=== PATIENT | female | born 1945 | race Caucasian/White ===

== ENCOUNTER 2016-04-27 12:02 | Observation (INO) ==
--- NOTE | 2016-04-27 12:19 | Emergency Department Note ---
Disposition Clinical Impression: Atrial fibrillation with RVR Shoulder pain, left Qualifiers: Chronicity: acute Qualified Code(s): M25.512 - Pain in left shoulder Disposition: Admitted As Inpatient Condition: Fair Referrals: Candy Toribio MD [Primary Care Provider] - Forms: ED Satisfaction Letter Time of Disposition: 14:03 (requires admission/transfer) Chest Pain HPI - General Chief Complaint: ED Chest Pain Stated Complaint: chest / left arm pain Time Seen by Provider: 04/27/16 12:18 Source: patient Mode of arrival: private vehicle Limitations: no limitations Vital Signs Reviewed: Yes Nursing Notes Reviewed: Yes - History of Present Illness HPI Narrative: Patient presents to the ED complaining of chest pain and left shoulder and upper arm pain. The arm and shoulder pain started 3 days ago after she was trying to get up from her recliner and wrenched her left arm on the handle. She describes it as a dull ache and states her shoulder is sore. She has never injured this arm before. She is right-handed. No numbness, tingling or weakness in arm. Her chest pain has been occurring intermittently over the past 2 days. She describes it as sharp sudden pains that will last a few seconds and then go away. They will happen several times a day. He is on the left side of her chest. She occasionally feels short of breath with these episodes. She has also had a dry cough for the past 2 weeks and states her voice is coming and going. She reports chills but no fever. She was nauseous earlier today but this has gone away. No vomiting. No urinary symptoms. No diarrhea or constipation. She does have a known history of A. fib with RVR and is on Coumadin, digoxin and Cardizem. She sees Dr. Camejo of [facility]. Severity scale (1-10): 10 - Related Data Home Medications Medication Instructions Recorded Confirmed Albuterol Sulfate [Albuterol 2 puff IH Q4HR PRN 01/09/15 07/09/15 Inhaler] Aspirin 81 mg PO DAILY 01/09/15 07/09/15 Furosemide [Lasix] 40 mg PO DAILY PRN 01/09/15 07/09/15 Glimepiride [Amaryl] 2 mg PO 0800 01/09/15 07/09/15 Lovastatin [Altoprev] 40 mg PO DAILY 01/09/15 07/09/15 Metformin [Glucophage] 1,000 mg PO BID 01/09/15 07/09/15 Potassium Chloride [Klor-Con] 20 meq PO DAILY 04/27/16 04/27/16 Previous Rx's Medication Instructions Recorded Omeprazole [PriLOSEC] 40 mg PO DAILY@0600 #30 capsule 01/12/15 Acetaminophen [Tylenol] 325 mg PO Q6HR PRN #10 tablet 05/27/15 Warfarin [Coumadin] 2.5 mg PO DAILY@1800 tablet 07/14/15 Digoxin [Lanoxin] 0.125 mg PO DAILY #30 tablet 07/17/15 Metoprolol [Lopressor] 75 mg PO BID tablet 07/17/15 Diltiazem CD (24hr) [Cardizem CD] 180 mg PO DAILY #30 cap.er.24h 07/27/15 Allergies Allergy/AdvReac Type Severity Reaction Status Date / Time No Known Allergies Allergy Verified 01/09/15 14:16 Constitutional: Reports: chills. Denies: fever, weakness, weight change Eyes: Denies: eye pain, eye discharge, vision change ENT ED: Denies: ear pain, throat pain, dental pain, hearing loss, epistaxis, congestion, dysphagia Cardiovascular: Reports: chest pain. Denies: palpitations, dyspnea on exertion , edema, syncope Respiratory: Reports: cough. Denies: dyspnea, wheezes, hemoptysis, stridor, sputum production Gastrointestinal: Reports: as per HPI, nausea. Denies: abdominal pain, vomiting , diarrhea Genitourinary: Denies: dysuria, frequency, hematuria, discharge Musculoskeletal: Reports: as per HPI, arthralgia Integumentary: Denies: rash, abrasion, lesions Neurological: Denies: headache, weakness, numbness, paresthesias, confusion, abnormal gait, vertigo Psychiatric: Denies: anxiety, depression, suicidal thoughts, homicidal thoughts , auditory hallucinations, visual hallucinations Endocrine: Denies: fatigue Hematological/Lymphatic: Denies: easy bleeding, easy bruising Allergic/Immunologic: Denies: facial swelling, urticaria Chest Pain PMH - Past Medical History Medical history: Reports: atrial fibrillation, diabetes, GERD, hyperlipidemia, hypertension, renal disease Surgical history: Reports: cholecystectomy, hysterectomy, knee replacement Psychiatric history: Reports: no psych history 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 Absent : tenderness - Respiratory Respiratory exam: Present: normal lung sounds bilaterally - Cardiovascular Cardiovascular exam: Present: tachycardia, irregular rhythm - Abdominal Exam Abdominal exam: Present: soft, Non-Tender. Absent: tenderness, distention, guarding, rebound, rigidity - Extremities Exam Extremities exam: Present: normal inspection, full ROM. Absent: tenderness, pedal edema - Expanded Upper Extremity Exam Shoulder exam: Present: normal inspection, full ROM (limited by discomfort), tenderness (generalized over left shoulder glenohumeral region). Absent: swelling, deformity, crepitus, tenderness over AC joint Arm exam: Present: normal inspection, full ROM Elbow exam: Present: normal inspection, full ROM Forearm/Wrist exam: Present: normal inspection, full ROM Hand exam: Present: normal inspection, full ROM Neuromotor exam: Normal: wrist extension, thumb opposition, thumb IP flexion, thumb adduction, fingers 2-5 abduction Neurosensory exam: Normal: radial nerve Vascular exam: Normal: capillary refill, radial pulse - Back Exam Back exam: Present: normal inspection. Absent: tenderness - Neurological Exam Neurological exam: Present: alert, oriented X3 - Psychiatric Psychiatric exam: Present: normal affect, normal mood - Skin Skin exam: Present: warm, dry, intact, normal color Course Course Narrative: Patient presents to the ED complaining of intermittent chest pain as well as left shoulder pain for the past few days. Shoulder pain appears to be musculoskeletal in nature. Will obtain x-ray to rule out arthritis or other underlying pathology. Regarding her chest discomfort this is likely due to her recurrent A. fib with RVR. Heart rate was in the 130s to 140s on arrival. 12- lead shows A. fib with RVR with no acute ischemic changes. Will check lab work and chest x-ray. Will give Cardizem bolus and reevaluate. - Reevaluation(s) Reevaluation #1: Chest x-ray is normal. Shoulder x-ray shows some calcific tendinopathy and arthritis. Laboratory studies are unremarkable including a negative troponin. Heart rate initially slowed into the 90s with Cardizem bolus but then returned to the 100s and 110s. She will be started on a Cardizem drip in aother attempt to achieve rate control. She will need admission for further A. fib control. I spoke to the hospitalist on-call, Dr. Douglas who has agreed to accept te patient. Patient and family members updated on plan of care and are in agreement. She was given pain medication for her left shoulder pain. She remains hemodynamically stable. Vital Signs Temperature 99.3 F 04/27/16 12:04 Pulse Rate 114 04/27/16 12:04 Respiratory Rate 16 04/27/16 12:04 Blood Pressure 133/90 04/27/16 12:04 O2 Sat by Pulse Oximetry 98 04/27/16 12:04 Temperature 99.3 F 04/27/16 12:04 Pulse Rate 122 04/27/16 12:40 Respiratory Rate 18 04/27/16 12:40 Blood Pressure 124/89 04/27/16 12:40 O2 Sat by Pulse Oximetry 98 04/27/16 12:40 Oxygen Delivery Oxygen Delivery Room Air Chest Pain - Differential Diagnosis Likely: stable angina (versus arrhythmia), atypical chest pain, chest pain - Medical Records Medical records reviewed: Yes I reviewed the patient's medical records. - Lab Data Lab results reviewed: Yes I reviewed the patient's lab results. Result diagrams: 04/27/16 12:25 04/27/16 12:25 Lab Results 04/27/16 04/27/16 04/27/16 Range/Units 12:25 12:25 12:25 WBC 12.5 H (4.3-11.1) K/mcL RBC 5.08 H (3.82-4.97) M/mcL Hgb 13.8 (11.5-15.4) g/dL Hct 42.6 (35.3-44.9) % MCV 83.9 (83.0-100.0) fL MCH 27.2 L (28.0-33.3) pg MCHC 32.4 (31.6-35.5) g/dL RDW 15.4 H (11.5-14.5) % Plt Count 276 (140-400) K/mcL MPV 10.4 (9.4-12.4) fL Immature Gran % 0.4 (0-4) % Seg Neutrophils % 73.3 % Lymphocytes % 15.0 % Monocytes % 9.5 % Eosinophils % 1.3 % Basophils % 0.5 % Neutrophils # 9.2 H (1.6-8.9) K/mcL Lymphocytes # 1.9 (0.6-4.6) K/mcL Monocytes # 1.2 (0.0-1.3) K/mcL Eosinophils # 0.2 (0.0-0.6) K/mcL Basophils # 0.1 (0.0-0.2) K/mcL PT 17.6 H (9.4-12.1) Seconds INR 1.6 APTT 31.4 (26.0-36.0) Seconds Sodium 136 (136-145) mEq/L Potassium 4.4 (3.5-4.5) mEq/L Chloride 100 (98-109) mEq/L Carbon Dioxide 25 (19-29) mEq/L BUN 14 (7-20) mg/dL Creatinine 1.24 H (0.57-1.11) mg/dL Est GFR ( Amer) 52 L (> 60) Est GFR (Non-Af Amer) 43 L (> 60) BUN/Creatinine Ratio 11 (6-26) Glucose 315 H (70-99) mg/dL Calculated Osmolality 295 (280-300) Calcium 9.5 (8.6-10.8) mg/dL Troponin I (0-0.03) ng/mL 04/27/16 Range/Units 12:25 WBC (4.3-11.1) K/mcL RBC (3.82-4.97) M/mcL Hgb (11.5-15.4) g/dL Hct (35.3-44.9) % MCV (83.0-100.0) fL MCH (28.0-33.3) pg MCHC (31.6-35.5) g/dL RDW (11.5-14.5) % Plt Count (140-400) K/mcL MPV (9.4-12.4) fL Immature Gran % (0-4) % Seg Neutrophils % % Lymphocytes % % Monocytes % % Eosinophils % % Basophils % % Neutrophils # (1.6-8.9) K/mcL Lymphocytes # (0.6-4.6) K/mcL Monocytes # (0.0-1.3) K/mcL Eosinophils # (0.0-0.6) K/mcL Basophils # (0.0-0.2) K/mcL PT (9.4-12.1) Seconds INR APTT (26.0-36.0) Seconds Sodium (136-145) mEq/L Potassium (3.5-4.5) mEq/L Chloride (98-109) mEq/L Carbon Dioxide (19-29) mEq/L BUN (7-20) mg/dL Creatinine (0.57-1.11) mg/dL Est GFR ( Amer) (> 60) Est GFR (Non-Af Amer) (> 60) BUN/Creatinine Ratio (6-26) Glucose (70-99) mg/dL Calculated Osmolality (280-300) Calcium (8.6-10.8) mg/dL Troponin I 0.01 (0-0.03) ng/mL - Radiology Data Radiology results reviewed: Yes I reviewed the patient's radiology results. ITS Impressions Chest X-Ray 04/27/16 12:15 IMPRESSION: No acute cardiopulmonary disease. D/ / John Sutherland MD / John Sutherland MD Interpreting Provider: John Sutherland MD Shoulder X-Ray 04/27/16 12:30 IMPRESSION: 1. No acute abnormality of the left shoulder. 2. Mild osteoarthritis of the AC joint. 3. Chronic calcific tendinopathy at the AC joint. D/ / 04/27/2016 13:23:47 Aiden Flynn MD / bcarter Interpreting Provider: Aiden Flynn MD - EKG Data EKG attestation: Yes I reviewed and interpreted this EKG. Rate: tachycardia Rhythm: A.Fib [place]/QRS: normal Interpretation: nonspecific ST-T wave changes, other (A-fib with RVR) Critical Care Time Critical Care Time: Yes Total Critical Care Time: 20 Attestation: The high probability of a clinically significant, sudden or life threatening deterioration of the [cardiovascular] system(s) required my full and direct attention, intervention and personal management. The aggregate critical care time was [] minutes. This time is in addition to time spent performing reported procedures but includes the following: [x] Data Review and interpretation []x Patient assessment and monitoring of vital signs [x] Documentation []x Medication orders and management of A-fib with RVR requiring IV antiarrhythmics
[2016-04-27 12:27] LABS: Basophils # 0.1 K/mcL (0.0-0.2); Basophils % 0.5 %; Eosinophils # 0.2 K/mcL (0.0-0.6); Eosinophils % 1.3 %; Hematocrit 42.6 % (35.3-44.9); Hemoglobin 13.8 g/dL (11.5-15.4); Immature Granulocytes % 0.4 % (0-4); Lymphocytes # 1.9 K/mcL (0.6-4.6); Mean Corpuscular HGB Conc 32.4 g/dL (31.6-35.5); Mean Corpuscular Hemoglobin 27.2 pg (28.0-33.3); Mean Corpuscular Volume 83.9 fL (83.0-100.0); Mean Platelet Volume 10.4 fL (9.4-12.4); Monocytes # 1.2 K/mcL (0.0-1.3); Monocytes % 9.5 %; Neutrophils # 9.2 K/mcL (1.6-8.9); Platelet Count 276 K/mcL (140-400); Red Blood Count 5.08 M/mcL (3.82-4.97); Red Cell Distribution Width 15.4 % (11.5-14.5); Segmented Neutrophils % 73.3 %
[2016-04-27 12:34] LABS: INR 1.6; Prothrombin Time 17.6 Seconds (9.4-12.1)
[2016-04-27 12:36] LABS: Activated Partial Thrombo Time 31.4 Seconds (26.0-36.0)
[2016-04-27 12:43] LABS: Calcium 9.5 mg/dL (8.6-10.8); Potassium 4.4 mEq/L (3.5-4.5)
[2016-04-27] MEDS ORDERED: Ketorolac 30 MG/ML VIAL IV ONE (13:58)
[2016-04-27] MEDS ORDERED: 0.9 % Sodium Chloride 250 ML ONE (15:05)
[2016-04-27] MEDS ORDERED: Naloxone 0.4 MG/ML INJ IVP PRN ×2 (15:15→16:20)
[2016-04-27] MEDS ORDERED: Acetaminophen 325 MG TABLET PO PRN (16:20)
[2016-04-27] MEDS ORDERED: *HR* Dextrose 50 % in Water (Syg) 50 ML SYRINGE IVP PRN (16:20)
[2016-04-27] MEDS ORDERED: Dextrose Gel 15 GM PO PRN ×2 (16:20)
[2016-04-27] MEDS ORDERED: D5% in Water 1,000 ML IV PRN (16:20)
[2016-04-27] MEDS: Insulin LISPRO 300 UNITS/3 ML VIAL SQ SCH ×2 (20:45→20:50)
[2016-04-27] MEDS: *HR* Warfarin 2.5 MG TABLET PO SCH (20:49)
[2016-04-28] MEDS ORDERED: 0.9 % Sodium Chloride 250 ML ONE (01:57)
[2016-04-28] MEDS: Insulin LISPRO 300 UNITS/3 ML VIAL SQ SCH ×4 (08:30→21:01)
[2016-04-28] MEDS: *HR* Glimepiride 2 MG TABLET PO SCH (09:20)
[2016-04-28] MEDS: *HR* Digoxin 0.125 MG TABLET PO SCH (09:20)
--- NOTE | 2016-04-28 10:11 | Internal Med History&Physical ---
Date of Encounter: 04/28/16 Time of Encounter: 09:35 Assessment and Plan (1) Atrial fibrillation with RVR Current visit: Yes Status: Acute She was placed on a Cardizem drip through emergency room orders. Her rate has improved. I will discontinue the drip and return her to oral medication (2) Shoulder pain, left Current visit: Yes Status: Acute Will order MRI. She will probably need physical therapy and occupational therapy evaluations Qualifiers: Chronicity: acute Qualified Code(s): M25.512 - Pain in left shoulder (3) CKD (chronic kidney disease) stage 3, GFR 30-59 ml/min Current visit: No Status: Chronic We will monitor renal indices as needed (4) High blood pressure Current visit: Yes Status: Chronic Continue present antihypertensive medication Qualifiers: Hypertension type: essential hypertension Qualified Code(s): I10 - Essential (primary) hypertension Internal Medicine - H&P: HPI Chief complaint: Left shoulder pain and rapid heart rate Admitted From: Home Plans for Post Hospital Care: Home History of present illness: Ms. Alejandro is a 70 year old female who came to the emergency room stating she had sudden onset of left shoulder pain the evening of April 24 as she was getting out of her recliner. She heard a "pop" and felt immediate pain. She did not take any algesic medications for the pain. The pain persisted without interruption over the next 2 days and seemed to gradually worsen. On April 28 she decided to come to emergency room for evaluation. She had noticed sensation of rapid heart rate onset April 25. She was evaluated in emergency room and found to have AF with RVR. X-rays of the left shoulder were unremarkable. She was admitted to [facility] floor on a Cardizem drip. She states the pain is a level 5-6/10 at this time. There is only pain on movement of the left shoulder. She denies any fall or injury. Musk skeletal history significant for previous right rotator cuff injury with repair with Dr. Foley June 2015. She denies gout or other bone joint or muscle disorders. Her cardiovascular history is significant for hypertension and paroxysmal atrial fibrillation. She denies missing doses of her metoprolol, Lanoxin, or diltiazem. She states she had a heart cath approximately 2010 which was unremarkable. She had an echocardiogram May 2015 which showed LVEF of 60- 65% with mild diastolic dysfunction seen. Atria were reported moderately enlarged but left atrial size was 3.7 cm diameter. She had a dobutamine stress echo March 2013 which showed no evidence of ischemia. She denies past NE heart failure angina DVT or pulmonary embolus. Past Med Surg Social Fam HX - Past Medical History Medical history: atrial fibrillation, diabetes, GERD, hyperlipidemia, hypertension, renal disease Psychiatric history: no psych history - Past Surgical History Surgical History: cholecystectomy, hysterectomy, knee replacement - Social History Smoking Status: Never smoker Smokeless Tobacco Status: No Alcohol use: none Drug use: none - Family History Son Family Member Ethnicity: Non- Living Status: Still Living Hx Family Cardiac Disorders: No Hx Family Respiratory Disorders: No Hx Family Cancer: No Hx Family GI Disorders: No Hx Family Endocrine Disorder: No Hx Family Neuromuscular Disorders: No Hx Family Neurologic Disorders: No Hx Family HEENT Disorders: No Hx Family Autoimmune Disorders: No Internal Medicine - H&P: Meds Albuterol Sulfate [Albuterol Inhaler] 2 puff IH Q4HR PRN 01/09/15 [History] Aspirin 81 mg PO DAILY 01/09/15 [History] Furosemide [Lasix] 40 mg PO DAILY PRN 01/09/15 [History] Glimepiride [Amaryl] 2 mg PO 0800 01/09/15 [History] Lovastatin [Altoprev] 40 mg PO DAILY 01/09/15 [History] Metformin [Glucophage] 1,000 mg PO BID 01/09/15 [History] Omeprazole [PriLOSEC] 40 mg PO DAILY@0600 #30 capsule 01/12/15 [Rx] Acetaminophen [Tylenol] 325 mg PO Q6HR PRN #10 tablet 05/27/15 [Rx] Warfarin [Coumadin] 2.5 mg PO DAILY@1800 tablet 07/14/15 [Rx] Digoxin [Lanoxin] 0.125 mg PO DAILY #30 tablet 07/17/15 [Rx] Metoprolol [Lopressor] 75 mg PO BID tablet 07/17/15 [Rx] Diltiazem CD (24hr) [Cardizem CD] 180 mg PO DAILY #30 cap.er.24h 07/27/15 [Rx] Potassium Chloride [Klor-Con] 20 meq PO DAILY 04/27/16 [History] Allergies No Known Allergies Allergy (Verified 01/09/15 14:16) All Systems PM: A 10-system review of systems was performed and is negative for pertinent findings except as documented above in the HPI. Review of systems: Gen.: Her weight has decreased from 94.937 kg at her 07/27/2015 [facility] discharge to 93.44 kg on admission now Cardiovascular: As per history of present illness Respiratory: She is a lifelong nonsmoker and has no known chronic lung disease GI: She has had cholecystectomy. She denies disorders of her liver or exocrine pancreas : She has CKD stage III but denies other kidney or bladder disorders Neurologic: She denies large distribution strokes or seizures. Endocrine: She was diagnosed with DM 2 approximately 2006. She has hyperlipidemia but no known thyroid disease Hematology/oncology: she denies blood disorders or cancers. She had anemia during her July 2015 hospitalization which is now resolved Psychiatric: She denies anxiety depression or other mental health issues Musk skeletal: As per history of present illness - Constitutional Vitals: Temp Pulse Resp BP Pulse Ox 97.8 F 81 18 131/82 93 L 04/28/16 09:30 04/28/16 09:30 04/28/16 09:30 04/28/16 09:30 04/28/16 09:30 Exam: Gen.: She is a well-developed well-nourished female who appears in minimal pain at rest but [id number] pain on movement of left arm HEENT: Head is atraumatic and normocephalic. Eyes: EOMI. There is no scleral icterus. Mouth: Mucosa is moist. Neck: Supple and nontender. There is no thyromegaly or adenopathy noted. Heart: Irregularly irregular with rate approximately 84/m Lungs: No wheezes or crackles are heard. Abdomen: Soft and nontender. No masses or guarding are noted. Extremities: There is no cyanosis edema or clubbing noted. Dorsalis pedis and posterior tibial pulses are trace palpable bilaterally. She has significant pain over the left anterior shoulder area especially over the biceps tendon. There is pain on internal and external rotation of the shoulder. She cannot lift the left arm off the bed without pain. The right arm is unremarkable. Neurologic: Mental status: She is talkative and a good historian. Cranial nerves: Smile is symmetric. Forehead wrinkles bilaterally. Tongue protrudes midline. EOMI. Motor: There is no pronator drift. Cerebellar: Finger to nose is intact bilaterally. Skin: Warm and dry Internal Med - H&P Results - Labs CBC & Chem 7: 04/27/16 12:25 04/27/16 12:25 - VTE Reasons for not Prescribing Prophylaxis: Not indicated-Anticoagulated or INR therapeutic
--- NOTE | 2016-04-28 10:21 | Electrocardiograph Report ---
[facility] Test Date: 2016-04-27 Pat Name: Amanda Alejandro Department: 9201 Room: [facility] Gender: F Feed Research Aide: [id number] : 1945 Requested By: Clementina Parish Order Number: [id number] Reading MD: Darvin Doe MD Measurements Intervals [place] Rate: 116 P: [place]: 0 QRS: -18 QRSD: 95 T: 96 QT: 256 QTc: 325 Interpretive Statements ATRIAL FIBRILLATION WITH RAPID VENTRICULAR RESPONSE Electronically Signed On 04-28-16 10:15:43 EST by Darvin Doe MD
[2016-04-28] MEDS: Diltiazem CD (24hr) 180 MG CAPSULE PO SCH (14:21)
[2016-04-28] MEDS ORDERED: *HR* HYDROcodone/Acet 5/325 mg TABLET PO ONE (15:03)
[2016-04-28] MEDS: *HR* Warfarin 2.5 MG TABLET PO SCH (20:47)
[2016-04-29 06:13] LABS: Basophils # 0.1 K/mcL (0.0-0.2); Basophils % 0.7 %; Eosinophils # 0.2 K/mcL (0.0-0.6); Eosinophils % 2.6 %; Hemoglobin 11.4 g/dL (11.5-15.4); Immature Granulocytes % 0.4 % (0-4); Lymphocytes # 2.3 K/mcL (0.6-4.6); Lymphocytes % 25.6 %; Mean Corpuscular HGB Conc 30.8 g/dL (31.6-35.5); Mean Corpuscular Hemoglobin 26.6 pg (28.0-33.3); Mean Corpuscular Volume 86.4 fL (83.0-100.0); Mean Platelet Volume 10.7 fL (9.4-12.4); Monocytes % 11.1 %; Neutrophils # 5.4 K/mcL (1.6-8.9); Platelet Count 248 K/mcL (140-400); Red Blood Count 4.28 M/mcL (3.82-4.97); Red Cell Distribution Width 15.6 % (11.5-14.5); Segmented Neutrophils % 59.6 %
[2016-04-29 07:30] VITALS: BP 115/68
[2016-04-29] MEDS: Insulin LISPRO 300 UNITS/3 ML VIAL SQ SCH (07:55)
[2016-04-29] MEDS: *HR* Glimepiride 2 MG TABLET PO SCH (07:56)
[2016-04-29] MEDS: *HR* Digoxin 0.125 MG TABLET PO SCH (07:56)
[2016-04-29] MEDS: Diltiazem CD (24hr) 180 MG CAPSULE PO SCH (07:57)
--- NOTE | 2016-04-29 10:23 | Discharge Summary ---
Date of Encounter: 04/29/16 Time of Encounter: 10:10 - Discharge Diagnosis (1) Atrial fibrillation with RVR Priority: Primary Status: Acute (2) Left rotator cuff tear Priority: Secondary Status: Acute Qualifiers: Rotator cuff tear extent: unspecified tear extent Qualified Code(s): M75.102 - Unspecified rotator cuff tear or rupture of left shoulder, not specified as traumatic (3) CKD (chronic kidney disease) stage 3, GFR 30-59 ml/min Priority: Secondary Status: Chronic (4) High blood pressure Priority: Secondary Status: Chronic Qualifiers: Hypertension type: essential hypertension Qualified Code(s): I10 - Essential (primary) hypertension - Discharge Medications Prescriptions: HYDROcodone/Acet 5/325 mg [Acton 5-325 mg] 1 tab PO Q4H PRN #6 tablet PRN Reason: Pain Home Medications: Albuterol Sulfate [Albuterol Inhaler] 2 puff IH Q4HR PRN 01/09/15 [History] Aspirin 81 mg PO DAILY 01/09/15 [History] Furosemide [Lasix] 40 mg PO DAILY PRN 01/09/15 [History] Glimepiride [Amaryl] 2 mg PO 0800 01/09/15 [History] Lovastatin [Altoprev] 40 mg PO DAILY 01/09/15 [History] Metformin [Glucophage] 1,000 mg PO BID 01/09/15 [History] Omeprazole [PriLOSEC] 40 mg PO DAILY@0600 #30 capsule 01/12/15 [Rx] Acetaminophen [Tylenol] 325 mg PO Q6HR PRN #10 tablet 05/27/15 [Rx] Warfarin [Coumadin] 2.5 mg PO DAILY@1800 tablet 07/14/15 [Rx] Digoxin [Lanoxin] 0.125 mg PO DAILY #30 tablet 07/17/15 [Rx] Metoprolol [Lopressor] 75 mg PO BID tablet 07/17/15 [Rx] Diltiazem CD (24hr) [Cardizem CD] 180 mg PO DAILY #30 cap.er.24h 07/27/15 [Rx] Potassium Chloride [Klor-Con] 20 meq PO DAILY 04/27/16 [History] HYDROcodone/Acet 5/325 mg [Acton 5-325 mg] 1 tab PO Q4H PRN #6 tablet 04/29/16 [ Rx] Allergies/Adverse Reactions: Allergies No Known Allergies Allergy (Verified 01/09/15 14:16) Procedures/tests Complete & Pending: Procedures Performed prior 72 hours Category Date Time Status MR shoulder LT wo con [MR] Routine MRI 04/28/16 10:16 Draft Date of admission: 04/27/16 15:29 Primary care physician: Cnady Toribio - Patient Status Disposition: Home, Self-Care Condition: Fair - Discharge Instructions Follow Up With: Candy Toribio MD [Primary Care Provider] - 1 week - Diet and Activity Activity: resume usual activities as tolerated Diet: advance to your usual diet Hospital course: Ms. Alejandro is a 70 year old female who came to the emergency room stating she had sudden onset of left shoulder pain the evening of April 24 as she was getting out of her recliner. She heard a "pop" and felt immediate pain. She did not take any algesic medications for the pain. The pain persisted without interruption over the next 2 days and seemed to gradually worsen. On April 28 she decided to come to emergency room for evaluation. She had noticed sensation of rapid heart rate onset April 25. She was evaluated in emergency room and found to have AF with RVR. X-rays of the left shoulder were unremarkable. She was admitted to [facility] on a Cardizem drip. Initial orders were written by the emergency room physician. I saw her on April 28 and performed a history and physical. She was initially placed on a Cardizem drip. Her ventricular response slowed to acceptable rate and she was changed to oral Cardizem when I saw her the morning of April 28. Her Cardizem and metoprolol were maintained at home doses. Heart rate remained satisfactory throughout remainder of her hospital stay. Her blood pressure at times was borderline low so no increase could be made in her dose of metoprolol or Cardizem. Chocks and level returned slightly subtherapeutic at 0.6. I did not increase her Lanoxin dose but this could be done if she has recurrence of RVR. MRI of the left shoulder was ordered because of severe pain. There was a large full-thickness tear of the entire supraspinatus muscle tendon measuring 24 mm in AP dimension. There was interstitial tear of the infraspinatus and subscapularis tendons also. There was intra-articular split thickness long head biceps tendon tear. I spoke with Dr. Foley at [facility] about the findings. He felt she could be discharged home and follow at the orthopedic clinic tomorrow at [address] Phillips. She will be discharged home today and follow with Dr. Toribio within 1 week. She will see Dr. Phillips tomorrow as per above. - Time Spent with Patient Total time spent providing and/or coordinating discharge services: - Constitutional Vitals: Temp Pulse Resp BP Pulse Ox 98.1 F 85 16 115/68 95 04/29/16 07:26 04/29/16 07:26 04/29/16 07:26 04/29/16 07:26 04/29/16 07:26 - VTE Reasons for not Prescribing Prophylaxis: Not indicated-Anticoagulated or INR therapeutic
== END 2016-04-29 11:31 | disposition home or self-care (01) ==
LOC: EMEROOPIK 12:02 → INPPIK 12:02
PROVIDERS: ADMIT Internal Medicine; ATTEND Internal Medicine